=== PATIENT | female | born 1970 | race Asian ===

== ENCOUNTER 2024-08-23 21:48 | Emergency (ER) | payer MEDICAID, SELFPAY ==
[2024-08-23 21:50] VITALS: BMI 20.9
[2024-08-23 22:38] VITALS: BP 139/82; PULSE 74; RESP 16; TEMP 37.1; O2SAT 100
--- NOTE | 2024-08-23 22:50 | XR_ITS ---
Examination: Pelvic ultrasound, transabdominal, complete Technique: Transabdominal ultrasound of the pelvis performed using grayscale imaging Date and time of exam: August 23, 2024 1145 hrs. Indications: Onset pelvic pain today Findings: No sonographic visualization uterus Ovaries obscured by bowel gas Impression: Limited study Ovaries obscured by bowel gas No free fluid in the pelvis No pelvic mass noted
--- NOTE | 2024-08-23 22:51 | PD.EDRME ---
Rapid Medical Screening Exam RME Arrival date/time: 08/23/24 21:48 53-year-old female with past medical history of tubal ligation presents emergency department complaining of lower back/pelvic pain for several years and is requesting confirmation if she has had tubal ligation in the past. Chief Complaint: General Adult/Misc Complain Time Seen by Provider: 08/23/24 22:50 Vital signs: Vital Signs Temperature 98.8 F 08/23/24 22:38 Pulse Rate 74 08/23/24 22:38 Respiratory Rate 16 08/23/24 22:38 Blood Pressure 139/82 H 08/23/24 22:38 Pulse Oximetry (%) 100 08/23/24 22:38 Oxygen Delivery Method Room Air 08/23/24 22:38 Vital signs reviewed by provider: Yes
[2024-08-23 23:31] LABS: Collection Type, Urine Clean Catch
[2024-08-23 23:46] LABS: Bacteria,Urine Rare; Bilirubin,Urine Negative (Negative); Blood,Urine Negative (Negative); Clarity,Urine Clear (Clear/Hazy); Color,Urine Colorless (Lt Yel-Yel); Culture Indicated,Urine Yes; Glucose, Urine Negative (Negative); Ketones,Urine Negative (Negative); Leukocyte Esterase,Urine Positive (Negative); Nitrite,Urine Negative (Negative); PH,Urine 6.5 (5.0-7.0); Protein,Urine Negative (Neg - Trace); RBC,Urine 1 /hpf (0-3); Specific Gravity,Urine 1.009 (1.001-1.035); Squamous Epithelial Cell,Urine 5 /hpf (0-5); Urobilinogen,Urine Negative mg/dL (0.0-1.0); WBC,Urine 41 /hpf (0-5)
[2024-08-24 00:05] LABS: Basophils % (Auto) 0 % (0-2.5); Eosinophils # (Auto) 0.1 Thou/mm3 (0.0-0.5); Eosinophils % (Auto) 2 % (0-10); Hematocrit 39.8 % (36.0-46.0); Hemoglobin 13.6 g/dL (12.0-16.0); Immature Granulocytes % (Auto) 0 % (0-0); Immature Granulocytes Auto 0.02 Thou/mm3 (0.00-0.00); Lymphocytes # (Auto) 2.9 Thou/mm3 (1.0-4.8); Lymphocytes % (Auto) 41 % (10-50); Mean Corpuscular HGB Conc 34.2 g/dl (31.0-37.0); Mean Corpuscular Hemoglobin 31.9 pg (25.0-35.0); Mean Corpuscular Volume 93 fL (80-100); Monocytes # (Auto) 0.5 Thou/mm3 (0.0-0.8); Monocytes % (Auto) 7 % (0-12); Neutrophils # (Auto) 3.6 Thou/mm3 (1.8-7.7); Neutrophils % (Auto) 51 % (37-80); Nucleated Red Blood Cell % 0 /100 WBC (0); Platelet Count 155 Thou/mm3 (140-440); Red Blood Count 4.27 Miln/mm3 (4.00-5.20); White Blood Count 7.1 Thou/mm3 (3.6-11.0)
[2024-08-24 00:27] LABS: Alanine Aminotransferase 17 U/L (10-49); Albumin, Serum 4.7 gm/dL (3.5-5.0); Albumin/Globulin Ratio 1.7 (1.2-2.2); Alkaline Phosphatase 107 U/L (46-116); Anion Gap 5 (7-16); Aspartate Amino Transferase 23 U/L (0-34); BUN/Creatinine Ratio 24 Ratio (12-20); Bilirubin,Total 0.5 mg/dL (0.3-1.2); Blood Urea Nitrogen 17 mg/dL (9-23); Calcium 10.3 mg/dL (8.3-10.6); Calcium (Corrected) 10.3 mg/dL (8.5-10.1); Carbon Dioxide 28.5 mMol/L (20.0-31.0); Chloride 106 mMol/L (98-107); Creatinine (Component) 0.7 mg/dL (0.6-1.3); Estimated Creatinine Clearance 72.7 mL/min (>60); Globulin 2.7 gm/dL (2.3-3.5); Glucose 102 mg/dL (74-106); Osmolality,Calculated 279 (275-295); Potassium 3.8 mMol/L (3.4-5.1); Sodium 139 mMol/L (136-145); Total Protein 7.4 gm/dL (5.7-8.2); eGFR > 60 See Note
[2024-08-24 00:36] LABS: HCG,Qualitative Serum Negative
--- NOTE | 2024-09-07 01:38 | EDNOTE_ITS ---
ED General RME/HPI General Chief complaint: General Adult/Misc Complain Stated complaint: WANTS IMAGING DONE TO PROVE SHE HAD A TUBAL LIGATI Time Seen by Provider: 08/23/24 22:50 Source: patient Arrival date/time: 08/23/24 21:48 53-year-old female with past medical history of tubal ligation presents emergency department complaining of lower back/pelvic pain for several years and is requesting confirmation if she has had tubal ligation in the past. Mode of arrival: ambulatory Limitations: no limitations RME / HPI RME / HPI narrative: 08/23/24 21:48 53-year-old female with past medical history of tubal ligation presents emergency department complaining of lower back/pelvic pain for several years and is requesting confirmation if she has had tubal ligation in the past. Related Data Allergies Allergy/AdvReac Type Severity Reaction Status Date / Time No Known Allergies Allergy Verified 08/23/24 21:50 Review of Systems Review of Systems Systems Reviewed: All systems reviewed, normal except as documented Constitutional Constitutional: Reports system reviewed and no additional complaints, except as documented, Denies body ache(s), Denies chills and Denies fever(s) Eyes Eyes: Reports system reviewed and no additional complaints, except as documented and Denies change in vision ENT Ears, Nose, Mouth, and Throat: Reports system reviewed and no additional complaints, except as documented, Denies disequilibrium, Denies dizziness, Denies sore throat and Denies vertigo Cardiovascular Cardiovascular: Reports system reviewed and no additional complaints, except as documented, Denies chest pain and Denies dyspnea Respiratory Respiratory: Reports system reviewed and no additional complaints, except as documented, Denies chest congestion, Denies cough and Denies dyspnea Gastrointestinal Gastrointestinal: Reports system reviewed and no additional complaints, except as documented, Denies abdominal pain, Denies nausea and Denies vomiting Genitourinary Genitourinary: Reports pelvic pain Musculoskeletal Musculoskeletal: Denies abnormal gait and Reports back pain Integumentary/Breasts Skin/Breast: Reports system reviewed and no additional complaints, except as documented, Denies erythema, Denies rash and Denies wounds Neurologic Neurologic: Reports system reviewed and no additional complaints, except as documented, Denies abnormal gait, Denies disequilibrium, Denies dizziness and Denies vertigo Past Medical History Social History SMOKING STATUS: Never smoker ED Exam General Limitations: Present no limitations General appearance: Present alert and in no apparent distress Head Head exam: Present atraumatic Eye Eye exam: Present normal appearance, PERRL and EOMI ENT ENT exam: Present normal exam, normal oropharynx and mucous membranes moist Neck Neck exam: Present normal inspection, full ROM and trachea midline Chest Chest inspection: Present normal inspection and symmetric chest wall rise Respiratory Respiratory exam: Present normal lung sounds bilaterally Cardiovascular Cardiovascular exam: Present regular rate, normal rhythm and normal heart sounds Abdominal Exam Abdominal exam: Present soft and normal bowel sounds Extremities Exam Extremities exam: Present normal inspection and full ROM Back Exam Back exam: Present normal inspection and full ROM Neurological Exam Neurological exam: Present alert, oriented X3 and CN II-XII intact Psychiatric Psychiatric exam: Present normal affect and normal mood Skin Skin exam: Present warm, dry, intact and normal color Course Quality Measures none Orders Category Date Time Status US pelvic complete Stat Exams 08/23/24 22:50 Completed CBC Stat Lab 08/23/24 23:56 Completed CMP [Comprehensive Metabolic Panel] Stat Lab 08/23/24 23:56 Completed HCG,Qualitative Serum Stat Lab 08/23/24 23:56 Completed Urinalysis, C/S if Indicated Stat Lab 08/23/24 23:27 Completed Urine Culture Stat Lab 08/23/24 23:27 Completed Vital Signs Vital signs: Vital Signs Temperature 98.8 F 08/23/24 22:38 Pulse Rate 74 08/23/24 22:38 Respiratory Rate 16 08/23/24 22:38 Blood Pressure 139/82 H 08/23/24 22:38 Pulse Oximetry (%) 100 08/23/24 22:38 Oxygen Delivery Method Room Air 08/23/24 22:38 100% RA WNL. [facility] Patient data External records reviewed:: [facility] previous records Clinical information provided by:: patient Social determinants that could affect healthcare access:: none Patient has the following chronic illnesses:: see chart How is presenting disease/condition affected by chronic disease/condition?: u neffected by Evaluation data The following diagnostics were reviewed and interpreted by me:: lab results and radiology exam(s) Lab and/or radiology exams considered but not ordered:: ordered Interpretation Summary: interpreted by me Medications Medications considered but not ordered:: n/a Medication administrations:: n/a Consultations Consultation(s) initiated? (list below): No Diagnosis Differential Diagnosis ED Complaint MDM: pyelonephritis, sciatica, torsion ovarion, UTI Most likely diagnosis given after review of the tests above:: back pain History of tubal ligation Admission Indicated Admission indicated?: not indicated Explain why admission is indicated or not indicated:: no admission criteria Admission Request Was there a request for admission?: No Disposition Plan Disposition Plan: Discharge Discharge Attestation Discharge Attestation: The patient and all family members were given an opportunity to ask questions and understood the discharge instructions. Discharge instructions specifically effects, indications for sooner follow up or return to the emergency department, and the expected course of current diagnosis. Patient condition: Stable Medical Decision Making MDM Narrative MDM Narrative: 53-year-old female with past medical history of tubal ligation presents emergency department complaining of lower back/pelvic pain for several years and is requesting confirmation if she has had tubal ligation in the past. Patient appears non toxic and hemodynamically stable. abdomen soft and non tender. CBC, CMP unremarkable. US pelvis unremarkable limited study. Discharged and instructed patient to f/u with pcp and request repeat US if symptoms persist. Differential Diagnosis Differential Diagnosis: pyelonephritis, sciatica, torsion ovarion, UTI Lab Data 08/23/24 23:56 08/23/24 23:56 Labs: Lab Results 08/23/24 08/23/24 Range/Units 23:27 23:56 WBC 7.1 (3.6-11.0) Thou/mm3 RBC 4.27 (4.00-5.20) Miln/mm3 Hgb 13.6 (12.0-16.0) g/dL Hct 39.8 (36.0-46.0) % MCV 93 (80-100) fL MCH 31.9 (25.0-35.0) pg MCHC 34.2 (31.0-37.0) g/dl RDW Std Deviation 39.0 (36.4-46.3) fL Plt Count 155 (140-440) Thou/mm3 Neut % (Auto) 51 (37-80) % Lymph % (Auto) 41 (10-50) % [place] % (Auto) 7 (0-12) % Eos % (Auto) 2 (0-10) % Baso % (Auto) 0 (0-2.5) % Neut # (Auto) 3.6 (1.8-7.7) Thou/mm3 Lymph # (Auto) 2.9 (1.0-4.8) Thou/mm3 [place] # (Auto) 0.5 (0.0-0.8) Thou/mm3 Eos # (Auto) 0.1 (0.0-0.5) Thou/mm3 Baso # (Auto) 0.0 (0.0-0.2) Thou/mm3 Immature Gran # (Auto) 0.02 H (0.00-0.00) Thou/mm3 Absolute Nucleated RBC 0.00 (0.00-0.00) Thou/mm3 Immature Gran % 0 (0-0) % Nucleated RBC % 0 (0) /100 WBC Sodium 139 (136-145) mMol/L Potassium 3.8 (3.4-5.1) mMol/L Chloride 106 (98-107) mMol/L Carbon Dioxide 28.5 (20.0-31.0) mMol/L Anion Gap 5 L (7-16) BUN 17 (9-23) mg/dL Creatinine 0.7 (0.6-1.3) mg/dL Estim Creat Clear Calc 72.7 (>60) mL/min eGFR > 60 (60 - ) See Note BUN/Creatinine Ratio 24 H (12-20) Ratio Glucose 102 (74-106) mg/dL Calculated Osmolality 279 (275-295) Calcium 10.3 (8.3-10.6) mg/dL Corrected Calcium 10.3 H (8.5-10.1) mg/dL Total Bilirubin 0.5 (0.3-1.2) mg/dL AST 23 (0-34) U/L ALT 17 (10-49) U/L Alkaline Phosphatase 107 (46-116) U/L Total Protein 7.4 (5.7-8.2) gm/dL Albumin 4.7 (3.5-5.0) gm/dL Globulin 2.7 (2.3-3.5) gm/dL Albumin/Globulin Ratio 1.7 (1.2-2.2) HCG, Qual Negative Ur Collection Type Clean Catch Urine Color Colorless A (Lt Yel-Yel) Urine Clarity Clear (Clear/Hazy) Urine pH 6.5 (5.0-7.0) Ur Specific [place] 1.009 (1.001-1.035) Urine Protein Negative (Neg - Trace) Urine Glucose (UA) Negative (Negative) Urine Ketones Negative (Negative) Urine Blood Negative (Negative) Urine Nitrite Negative (Negative) Urine Bilirubin Negative (Negative) Urine Urobilinogen (Auto) Negative (0.0-1.0) mg/dL Ur Leukocyte Esterase Positive (Negative) Urine RBC 1 (0-3) /hpf Urine WBC 41 H (0-5) /hpf Ur Squamous Epith Cells 5 (0-5) /hpf Urine Bacteria Rare (None) Ur Culture Indicated? Yes Discharge Plan Plan Patient Disposition: HOME (Self Care) Disposition Comment: Stable Prescriptions/Referrals Referrals: No Primary/Family,Physician [Primary Care Provider] - In 1 week Problem List Clinical Impression: Back pain, Hx of tubal ligation Patient/Caregiver Discharge Instructions Discharge Activity: activity as tolerated Education Materials: Self Care Back Day, ED Back Pain (Acute or Chronic) Additional Instructions: Follow-up with primary care provider upon discharge. Return to emergency department for any worsening symptoms or as needed. Print Language: Mandarin Stand Alone Forms: Jany Award Info., Patient Portal Info Letter Attestation Attestation The patient was seen by the midlevel practitioner. I, the co-signing physician, was present during the entire ER visit. While I did not physically examine the patient, I was available for consultation as needed.
== END 2024-08-24 01:32 | disposition home or self-care (01) ==
PROVIDERS: Emergency Provider Emergency Medicine
DX: M54.50 Low back pain, unspecified (principal); Z98.51 Tubal ligation status
CPT/HCPCS: 36415; 76856; 80053; 81001; 84703; 85025; 87086; 99284

== ENCOUNTER → 2024-10-19 | Outpatient (BNVA) | payer MEDICAID, SELFPAY | END | disposition home or self-care (01) | PROVIDERS: PCP Nurse Practitioner Family; Referring Provider Nurse Practitioner Family; Visit Provider Nurse Practitioner Family | DX: Z13.220 Encounter for screening for lipoid disorders (principal); Z11.3 Encounter for screening for infections with a predominantly sexual mode of transmission; Z71.2 Person consulting for explanation of examination or test findings; Z13.1 Encounter for screening for diabetes mellitus; Z12.11 Encounter for screening for malignant neoplasm of colon; Z76.89 Persons encountering health services in other specified circumstances | CPT/HCPCS: 99214 ==

== ENCOUNTER → 2024-10-28 | Outpatient (BNVA) | payer MEDICAID, SELFPAY | END | disposition home or self-care (01) | PROVIDERS: PCP Nurse Practitioner Family; Referring Provider Nurse Practitioner Family; Visit Provider Nurse Practitioner Family | DX: Z12.4 Encounter for screening for malignant neoplasm of cervix (principal) | CPT/HCPCS: 93005; 99215 ==

== ENCOUNTER → 2024-11-09 | Outpatient (BNVA) | payer MEDICAID, SELFPAY | END | disposition home or self-care (01) | PROVIDERS: PCP Nurse Practitioner Family; Referring Provider Nurse Practitioner Family; Visit Provider Nurse Practitioner Family | DX: Z12.4 Encounter for screening for malignant neoplasm of cervix (principal) | CPT/HCPCS: 81025; 99215; Q0091 ==

== ENCOUNTER → 2024-11-30 | Outpatient (BNVA) | payer MEDICAID, SELFPAY | END | disposition home or self-care (01) | PROVIDERS: PCP Nurse Practitioner Family; Referring Provider Nurse Practitioner Family; Visit Provider Nurse Practitioner Family | DX: E78.5 Hyperlipidemia, unspecified (principal); N39.0 Urinary tract infection, site not specified; B96.20 Unspecified Escherichia coli [E. coli] as the cause of diseases classified elsewhere; Z71.2 Person consulting for explanation of examination or test findings; R77.0 Abnormality of albumin | CPT/HCPCS: 99214 ==

== ENCOUNTER 2024-12-01 08:26 | Emergency (ER) | payer MEDICAID, SELFPAY ==
[2024-12-01 08:34] VITALS: BP 122/80; RESP 22; TEMP 36.4; O2SAT 97
[2024-12-01 09:02] VITALS: BP 113/76; PULSE 76; RESP 16; TEMP 36.6; O2SAT 98; BMI 19.3
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
[2024-12-01] MEDS: DIAZEPAM 5 MG TABLET 10 MG PO (09:17)
[2024-12-01] MEDS: HYDROcodone/APAP 5/325 TABLET 1 TAB PO (09:18)
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
== END 2024-12-01 12:25 | disposition home or self-care (01) ==
PROVIDERS: Emergency Provider Emergency Medicine
DX: R07.9 Chest pain, unspecified (principal); M25.562 Pain in left knee; M25.561 Pain in right knee; R10.9 Unspecified abdominal pain; V89.2XXA Person injured in unspecified motor-vehicle accident, traffic, initial encounter; Y92.410 Unspecified street and highway as the place of occurrence of the external cause
CPT/HCPCS: 71250; 73562; 74176; 99284; A9270

== ENCOUNTER 2025-02-01 14:22 | Emergency (ER) | payer MEDICAID, SELFPAY ==
[2025-02-01 14:33] VITALS: BP 111/71; PULSE 88; RESP 18; TEMP 36.7; O2SAT 99
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
== END 2025-02-01 16:56 | disposition home or self-care (01) ==
PROVIDERS: Emergency Provider Family Medicine
DX: M25.561 Pain in right knee (principal)
CPT/HCPCS: 73562; 99283

== ENCOUNTER → 2025-02-01 | Outpatient (CLI) | payer MEDICAID, SELFPAY ==
--- NOTE | 2025-02-01 14:00 | XR_ITS ---
Examination: Pelvic ultrasound, transabdominal, complete Technique: Transabdominal ultrasound of the pelvis performed using grayscale imaging Date and time of exam: February 01, 2025 1406 hours INDICATIONS: History hysterectomy FINDINGS: Absent uterus Ovaries not visualized secondary to gas IMPRESSION: Limited study No free fluid in the pelvis No pelvic mass demonstrated
== END | disposition home or self-care (01) ==
PROVIDERS: PCP Nurse Practitioner Family; Referring Provider Nurse Practitioner Family; Visit Provider Nurse Practitioner Family
DX: Z90.711 Acquired absence of uterus with remaining cervical stump (principal)
CPT/HCPCS: 76856

== ENCOUNTER → 2025-02-22 | Outpatient (BNVA) | payer MEDICAID, SELFPAY | END | disposition home or self-care (01) | PROVIDERS: PCP Nurse Practitioner Family; Referring Provider Nurse Practitioner Family; Visit Provider Nurse Practitioner Family | DX: Z71.2 Person consulting for explanation of examination or test findings (principal); Z98.51 Tubal ligation status; Z90.79 Acquired absence of other genital organ(s); Z23 Encounter for immunization | CPT/HCPCS: 90471; 90677; G0009; J90677 ==

== ENCOUNTER → 2025-03-01 | Outpatient (BNVA) | payer MEDICAID, SELFPAY | END | disposition home or self-care (01) | PROVIDERS: PCP Nurse Practitioner Family; Referring Provider Nurse Practitioner Family; Visit Provider Nurse Practitioner Family | DX: Z12.31 Encounter for screening mammogram for malignant neoplasm of breast (principal); M25.561 Pain in right knee | CPT/HCPCS: 99213; 99214 ==

== ENCOUNTER → 2025-03-15 | Outpatient (BNVA) | payer MEDICAID, SELFPAY | END | disposition home or self-care (01) | PROVIDERS: PCP Nurse Practitioner Family; Referring Provider Nurse Practitioner Family; Visit Provider Nurse Practitioner Family | DX: Z71.2 Person consulting for explanation of examination or test findings (principal); E78.5 Hyperlipidemia, unspecified | CPT/HCPCS: 99213 ==

== ENCOUNTER → 2025-03-22 | Outpatient (CLI) | payer MEDICAID, SELFPAY ==
--- NOTE | 2025-03-22 09:30 | XR_ITS ---
Examination: Screening digital mammography, bilateral Computer aided detection 3-D breast Tomosynthesis, bilateral Date and time of exam: March 22, 2025 0921 hours Indication: Screening Technique: Nonmagnified MLO, CC views of the breasts to been obtained, reconstructed from 3-D Tomosynthesis images. R2 computer aided detection program utilized for evaluation of suspicious masses and/or abnormal calcifications. 3-D Tomosynthesis images obtained. Findings: The breasts are heterogeneously dense, which may obscure small masses Benign calcifications. No suspicious masses Impression: BI-RADS category II: Benign Findings. Recommend 1 year follow-up mammogram.
== END | disposition home or self-care (01) ==
LOC: CDIM 09:05
PROVIDERS: Referring Provider Nurse Practitioner Family; Visit Provider Nurse Practitioner Family
DX: Z12.39 Encounter for other screening for malignant neoplasm of breast (principal); R92.333 Mammographic heterogeneous density, bilateral breasts; R92.1 Mammographic calcification found on diagnostic imaging of breast
CPT/HCPCS: 77063; 77067

== ENCOUNTER 2025-03-29 17:26 | Emergency (ER) | payer MEDICAID, SELFPAY ==
[2025-03-29 18:23] VITALS: BP 111/72; PULSE 73; RESP 18; TEMP 36.9; O2SAT 98; BMI 19.5
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
[2025-03-29] MEDS: HYDROcodone/APAP 5/325 TABLET 1 TAB PO (19:10)
== END 2025-03-29 19:18 | disposition home or self-care (01) ==
PROVIDERS: Emergency Provider Emergency Medicine
DX: M23.91 Unspecified internal derangement of right knee (principal)
CPT/HCPCS: 99283; A9270

== ENCOUNTER → 2025-04-05 | Outpatient (BNVA) | payer MEDICAID, SELFPAY | END | disposition home or self-care (01) | PROVIDERS: PCP Nurse Practitioner Family; Referring Provider Nurse Practitioner Family; Visit Provider Nurse Practitioner Family | DX: Z71.2 Person consulting for explanation of examination or test findings (principal) | CPT/HCPCS: 99213 ==

== ENCOUNTER 2025-04-26 10:04 | Outpatient (AMB) | payer MEDICAID, SELFPAY ==
[2025-04-26 10:23] VITALS: BP 116/74; PULSE 75; RESP 18; TEMP 36.8; O2SAT 97; BMI 19.8
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
== END 2025-04-26 10:47 | disposition home or self-care (01) ==
LOC: HODAHC 10:04
PROVIDERS: Supervising Provider Internal Medicine; Visit Provider Student in an Organized Health Care Education/Training Program
DX: M25.561 Pain in right knee (principal); M25.661 Stiffness of right knee, not elsewhere classified
CPT/HCPCS: 99213; G0463

== ENCOUNTER → 2025-05-03 | Outpatient (BNVA) | payer MEDICAID, SELFPAY | END | disposition home or self-care (01) | PROVIDERS: PCP Nurse Practitioner Family; Referring Provider Nurse Practitioner Family; Visit Provider Nurse Practitioner Family | DX: G47.30 Sleep apnea, unspecified (principal); Z71.2 Person consulting for explanation of examination or test findings; E78.5 Hyperlipidemia, unspecified | CPT/HCPCS: 99214 ==

== ENCOUNTER 2025-05-10 09:16 | Outpatient (AMB) | payer MEDICAID, SELFPAY ==
[2025-05-10 09:31] VITALS: BP 105/67; PULSE 81; RESP 17; TEMP 36.5; O2SAT 97; BMI 19.6
--- NOTE | 2025-05-10 09:31 | AMB.GYNCLNOT ---
Vital Signs 05/10/25 09:31 Height 1.6 m Height Method Stated Weight 50.349 kg Weight Measurement Method Standing Scale BMI 19.6 BP 105/67 Blood Pressure Source Automatic Cuff Blood Pressure Location Right Upper Arm Position Sitting Respiration 17 Pulse 81 Pulse Source Monitor Temp 97.7 F Temp Source Temporal Artery Scan Pulse Oximetry (%) 97 Oxygen Delivery Method Room Air Allergies/Home Meds Allergies & Medications Allergies No Known Allergies Allergy (Verified 05/10/25 09:36) Medication Reconciliation diclofenac sodium 3 % topical gel 1 applic topical TID RT knee pain #100 grams 04/26/25 [Rx Confirmed 05/10/25] leg brace (JOSE Knee Brace) #1 ea 04/26/25 [Rx Confirmed 05/10/25] meloxicam 7.5 mg tablet 7.5 mg PO QDAY #30 tabs 05/04/25 [Rx Confirmed 05/10/25] Intake Visit Data Collection New Patient or Established: Established Patient (seen at [facility] within 3 years) Reason for Visit:: REFERRAL Seen by Clinical Staff ONLY (RN/MA): No Research Software Engineer Required: No Do You Feel Safe at Home: Yes Authorities Contacted: N/A PCP or OBGYN visit in last 3 months: Yes Date of Last PCP or OBGYN visit: 05/03/25 Hx Now: No Are you currently on any form of Control: No Pain Present Currently: No Pain Scale Used: [place]-Griggs/Numerical Pain scale:: 0 Smoking Status Smoking Status: Never smoker Finisher Map And Chart history Finisher Map And Chart History Menstrual regularity: regular Flow: light Monthly: Yes How many days does period last: 6 Age at menarche: 16 Currently sexually active: No Questionnaires Covid-19 Vaccine Questionnaire Has patient been vacinated for Covid-19 Have you been vacinated for Covid-19: No PHQ-9 PHQ-2 Over the last 2 weeks, how often have you been bothered by any of the following problems? 1. Little interest or pleasure in doing things: not at all 2. Feeling down, depressed, or hopeless: not at all Total score: 0 PHQ-9 3. Trouble falling or staying asleep, or sleeping too much: Not at all 4. Feeling tired or having little energy: Not at all 5. Poor appetite or overeating: Not at all 6. Feeling bad about yourself - or that you are a failure or have let yourself or your family down: Not at all 7. Trouble concentrating on things, such as reading the newspaper or watching television: Not at all 8. Moving or speaking so slowly that other people could have noticed? - Or the opposite - being so fidgety or restless that you have been moving around a lot more than usual: not at all 9. Thoughts that you would be better off or of hurting yourself in some way: Not at all Total score: 0 If you checked off any problems, how difficult have these problems made it for you to do your work, take care of things at home, or get along with other people?: not difficult at all Source: Developed by Drs. Hitesh White, Iris Mccauley, Yash James and colleagues, with an educational divya from [employer]. Depression screen completed yes Social History Living Situation History Marital Status: Lives With: Spouse Housing: House Tobacco History Smoking Status: Never smoker Second Hand Smoke Exposure: No Alcohol History Alcohol Intake: Never Substance Use History Substance Use: NEVER Domestic Abuse History Do You Feel Safe at Home: Yes History of Present Illness HPI Narrative Eloina Crespo, a 54-year-old female patient, presents to the clinic requesting a certificate confirming her sterilization status based on a phalangeal incision on her abdomen. The patient reports having undergone a sterilization procedure in the past but is uncertain about the specific type of surgery performed. She requires documentation of her sterilization status for legal purposes, as her propagator laborer has requested this information. The patient's primary concern is obtaining official confirmation of her sterilization. She has a visible abdominal incision, which she believes is related to the sterilization procedure. However, she lacks detailed information about the surgery and does not have access to her surgical records. The patient expresses urgency in obtaining this documentation, citing its importance for her propagator laborer. Due to language barriers, the patient's daughter assisted with translation during the visit, and [email or web address] was utilized to facilitate communication. The patient's ability to provide a detailed history of her surgical procedure is limited by these language constraints and her lack of specific medical knowledge about the operation she underwent. Surgical History: - Sterilization procedure (type unspecified) Family History: - Mother: History of arm surgery Social History: - Language: Patient and daughter speak a foreign language, Portuguese proficiency limited - Legal: Patient needs documentation for immigration purposes Review of Systems Review of Systems Systems Reviewed: All systems reviewed, normal except as documented Exam General General Appearance: alert, in no apparent distress and healthy appearing Head Head exam: atraumatic Neck Neck exam: Present normal inspection and trachea midline Chest Chest inspection: Present normal inspection and symmetric chest wall rise External exam: Present normal external exam; Absent tenderness Neuro Neurological exam: Present oriented X3 Psych Psychiatric exam: Present normal affect and normal mood Office Procedures OB Clinic LOC & Office Proc's Nursing/Assessment Patient Status: Established Patient OB Clinic Nursing Assessment: Medication Reconciliation, Update PMH in EMR and Vital Signs OB Clinic Coordination of Care: Complex Care and Chronic Disease 1-5, Consent,records obtained, informed consent, Education Simp Pt/Fam and Staff clarify orders Established Patient Charge Established Patient Point Assignment: 85 Established Patient Point Charge: EP Level 3 (80-115) Assessment & Plan Diagnosis / Problem List (1) History of female sterilization: Status: Acute (2) Other general medical examination for administrative purposes: Status: Acute Plan Suspected sterilization status Assessment: - Patient reports sterilization surgery but lacks documentation - Pelvic ultrasound shows absent uterus, ovaries not visualized due to obscuring gas - Phalangeal incision on abdomen noted, insufficient to confirm sterilization status - Incision could be related to various procedures (cyst removal, hysterectomy, , appendectomy) - Exact nature of sterilization status cannot be determined without surgical records or definitive imaging Plan: - Order urgent MRI of the pelvis to determine: ? Presence/absence of uterus ? Type of sterilization procedure - Inform patient: ? Insurance approval and scheduling may take 4-5 days ? Await call from radiology department for insurance approval and scheduling - Discussed alternative diagnostic options: ? Diagnostic laparoscopy (more invasive) ? Hysterosalpingogram (more invasive) - Unable to provide sterilization certificate based on current information - Follow up after MRI results for: ? Further management ? Potential certification
== END 2025-05-10 09:49 | disposition home or self-care (01) ==
LOC: HODSOBC 09:16
PROVIDERS: PCP Obstetrics & Gynecology; Referring Provider Obstetrics & Gynecology; Supervising Provider Obstetrics & Gynecology; Visit Provider Obstetrics & Gynecology
DX: Z02.89 Encounter for other administrative examinations (principal); Z98.51 Tubal ligation status
CPT/HCPCS: 99213; G0463

== ENCOUNTER 2025-05-31 09:21 | Outpatient (AMB) | payer MEDICAID, SELFPAY | END 2025-05-31 10:49 | disposition home or self-care (01) | LOC: HODAHC 09:21 | PROVIDERS: Supervising Provider Internal Medicine; Visit Provider Student in an Organized Health Care Education/Training Program | DX: G47.30 Sleep apnea, unspecified (principal); M25.561 Pain in right knee; Z98.51 Tubal ligation status | CPT/HCPCS: 99213; G0463 ==

== ENCOUNTER → 2025-06-21 | Outpatient (BNVA) | payer MEDICAID, SELFPAY | END | disposition home or self-care (01) | PROVIDERS: PCP Nurse Practitioner Primary Care; Referring Provider Nurse Practitioner Primary Care; Visit Provider Nurse Practitioner Primary Care | DX: R05.1 Acute cough (principal) | CPT/HCPCS: 99212 ==

== ENCOUNTER → 2025-07-05 | Outpatient (BNVA) | payer MEDICAID, SELFPAY | END | disposition home or self-care (01) | PROVIDERS: PCP Nurse Practitioner Family; Referring Provider Nurse Practitioner Family; Visit Provider Nurse Practitioner Family | DX: R05.1 Acute cough (principal); G47.30 Sleep apnea, unspecified | CPT/HCPCS: 99213 ==

== ENCOUNTER → 2025-08-02 | Outpatient (CLI) | payer MEDICAID, SELFPAY ==
--- NOTE | 2025-08-02 07:00 | XR_ITS ---
Examination: MRI pelvis without contrast Date and time of exam: August 02, 2025, 0717 hours INDICATIONS: History hysterectomy, physician to determine postsurgical status Technique: Multiple MRI axial and sagittal sections pelvis Sagittal T2-weighted images, TR 3500, TE 118 T1 weighted transverse sections, TR 688 T8.5, T2-weighted sagittal sections T1 weighted sagittal sections TR 621, TE 30 T2 axial sections, TR 4, 190, TE 84. Findings: Partially retroverted uterus, 6 x 2.7 x 2.5 cm Endometrial stripe 2.5 mm Ovaries poorly visualized with subcentimeter bilateral ovarian follicular cysts No free fluid in the pelvis Urinary bladder intact Homogeneous marrow signal No pelvic lymphadenopathy No free fluid in the pelvis IMPRESSION: Partially retroverted uterus, 6 x 2.7 x 2.5 cm
== END | disposition home or self-care (01) ==
LOC: SMRI 06:38
PROVIDERS: PCP Nurse Practitioner Family; Referring Provider Obstetrics & Gynecology; Visit Provider Obstetrics & Gynecology
DX: N85.4 Malposition of uterus (principal); Z98.890 Other specified postprocedural states
CPT/HCPCS: 72195

== ENCOUNTER → 2025-08-09 | Outpatient (BNVA) | payer MEDICAID, SELFPAY | END | disposition home or self-care (01) | PROVIDERS: PCP Nurse Practitioner Family; Referring Provider Nurse Practitioner Family; Visit Provider Nurse Practitioner Family | DX: Z76.89 Persons encountering health services in other specified circumstances (principal) ==

== ENCOUNTER → 2025-09-13 | Outpatient (BNVA) | payer MEDICAID, SELFPAY | END | disposition home or self-care (01) | PROVIDERS: PCP Nurse Practitioner Family; Referring Provider Nurse Practitioner Family; Visit Provider Nurse Practitioner Family | DX: Z02.89 Encounter for other administrative examinations (principal) | CPT/HCPCS: 99213 ==

== ENCOUNTER → 2025-09-20 | Outpatient (BNVA) | payer MEDICAID, SELFPAY | END | disposition home or self-care (01) | PROVIDERS: PCP Nurse Practitioner Family; Referring Provider Nurse Practitioner Family; Visit Provider Nurse Practitioner Family | DX: Z71.2 Person consulting for explanation of examination or test findings (principal) | CPT/HCPCS: 99214 ==